=== PATIENT | female | born 1965 ===

== ENCOUNTER → 2020-10-07 14:22 | Outpatient (BNVA) | payer OTHER, SELFPAY | PROVIDERS: PCP Internal Medicine; Visit Provider Nurse Practitioner Family ==

== ENCOUNTER 2021-01-13 08:31 | Outpatient (REF) | payer OTHER, SELFPAY | END 2021-01-13 08:32 | disposition home or self-care (01) | LOC: HO.HOSX 08:31 | PROVIDERS: Visit Provider Orthopaedic Surgery | DX: Z13.89 Encounter for screening for other disorder (principal) ==

== ENCOUNTER 2021-01-14 05:35 | Outpatient (REF) | payer OTHER, SELFPAY ==
--- NOTE | ~2021-01-14 | XR_ITS ---
EXAMINATION: XR FOOT, RIGHT XR ANKLE, RIGHT CLINICAL INFORMATION: Pain in right foot and right ankle. COMPARISON: None TECHNIQUE: 3 views right ankle and 3 views right foot. FINDINGS: RIGHT FOOT: There is mild hallux valgus deformity 1st MTP joint. There is no visible acute fracture, dislocation or subluxation. No bony erosive changes seen. The soft tissues are normal. RIGHT ANKLE: The ankle mortise and subtalar joints are normal. There is a moderate-sized calcaneal heel and a small retrocalcaneal enthesophyte. There is dorsal intertarsal spurring, as well. Mild soft tissue swelling is seen along the dorsal intertarsal region where spurring is noted. No acute fracture or dislocation seen. There is moderate degenerative spurring at the 1st MTP joint on the lateral view. XR/XR foot RT 2V IMPRESSION: Moderate degenerative changes 1st MTP joint, dorsal intertarsal joints and moderate sized enthesophyte along the calcaneal heal and retrocalcaneal regions.
--- NOTE | ~2021-01-14 | XR_ITS ---
EXAMINATION: XR HAND, LEFT CLINICAL INFORMATION: Left hand pain. COMPARISON: None TECHNIQUE: PA, lateral, and oblique views of the left hand. FINDINGS: No acute fracture or dislocation. Normal carpal alignment. Tiny marginal osteophytes at the triscaphe and 1st carpometacarpal joints as well as scattered throughout the interphalangeal joints. No osseous erosion. No abnormal soft tissue calcification. XR/XR hand LT min 3V IMPRESSION: Minimal osteoarthritis at the triscaphe and 1st carpometacarpal joints as well as scattered throughout the interphalangeal joints.
--- NOTE | ~2021-01-14 | XR_ITS ---
EXAMINATION: XR FOOT, RIGHT XR ANKLE, RIGHT CLINICAL INFORMATION: Pain in right foot and right ankle. COMPARISON: None TECHNIQUE: 3 views right ankle and 3 views right foot. FINDINGS: RIGHT FOOT: There is mild hallux valgus deformity 1st MTP joint. There is no visible acute fracture, dislocation or subluxation. No bony erosive changes seen. The soft tissues are normal. RIGHT ANKLE: The ankle mortise and subtalar joints are normal. There is a moderate-sized calcaneal heel and a small retrocalcaneal enthesophyte. There is dorsal intertarsal spurring, as well. Mild soft tissue swelling is seen along the dorsal intertarsal region where spurring is noted. No acute fracture or dislocation seen. There is moderate degenerative spurring at the 1st MTP joint on the lateral view. XR/XR ankle RT 2V IMPRESSION: Moderate degenerative changes 1st MTP joint, dorsal intertarsal joints and moderate sized enthesophyte along the calcaneal heal and retrocalcaneal regions.
== END 2021-01-14 05:36 | disposition home or self-care (01) ==
LOC: HO.HOSX 05:35
PROVIDERS: PCP Internal Medicine; Referring Provider Internal Medicine; Visit Provider Physician Assistant
DX: M79.642 Pain in left hand (principal); M25.571 Pain in right ankle and joints of right foot; M79.671 Pain in right foot; M25.532 Pain in left wrist
CPT/HCPCS: 73130; 73600; 73620; 99212

== ENCOUNTER 2021-03-05 10:27 | Outpatient (REF) | payer OTHER, SELFPAY ==
[2021-03-05 11:01] LABS: MANUAL DIFF FLAG NO
[2021-03-05 11:11] LABS: Basophils Percent Auto 0.4 % (0-2); Eosinophils Absolute Auto 0.2 X10*3/uL (0.0-0.4); Eosinophils Percent Auto 1.8 % (0-4); Hematocrit 35.7 % (37-47); Hemoglobin 11.2 g/dl (12.0-16.0); Imm Gran Abs Auto 0.05 X10*3/uL (0.00-0.03); Imm Gran Pct Auto 0.5 % (0.0-0.4); Immature Retic Fraction 15.1 % (3.0-15.9); Lymphocytes Absolute Auto 3.5 X10*3/uL (1.2-4.9); Lymphocytes Percent Auto 37.1 % (20-40); Mean Corpuscular HGB Conc 31.4 g/dl (31.0-35.0); Mean Corpuscular Hemoglobin 29.9 pg (27.0-33.0); Mean Corpuscular Volume 95.2 fL (80-98); Mean Platelet Volume 9.4 fL (9.4-12.3); Monocytes Absolute Auto 0.8 X10*3/uL (0.1-1.2); Monocytes Percent Auto 8.8 % (2-11); Neutrophils Absolute Auto 4.8 X10*3/uL (2.0-8.3); Neutrophils Percent Auto 51.4 % (45-73); Platelet Count 301 X10*3/uL (160-400); Red Blood Count 3.75 X10*6/uL (4.20-5.50); Red Cell Distribution Width 13.1 % (11.0-16.0); Retic HGB Equivalent 34.3 pg (30.0-35.0); Reticulocyte Percent 2.2 % (0.5-1.8); Reticulocytes Absolute 0.081 X10*6/uL (0.026-0.095); White Blood Count 9.4 X10*3/uL (4.8-10.8)
[2021-03-05 11:29] LABS: Cholesterol 185 mg/dL; HDL Cholesterol 59 mg/dL; Iron 50 mcg/dL (30-160); LDL Cholesterol Calculated 115 mg/dl; Magnesium 2.1 mg/dL (1.6-2.6); Percent Iron Saturation 15 % (15-50); Total Iron Binding Capacity 334 mcg/dL (228-428); Triglycerides 59 mg/dL; Unsaturated Iron Binding 284 ug/dL
[2021-03-05 11:50] LABS: Ferritin 38 ng/mL (10-250)
[2021-03-05 12:04] LABS: Folate 11.9 ng/mL (> or = 4.0); Vitamin B12 384 pg/mL (200-900)
== END 2021-03-05 10:28 | disposition home or self-care (01) ==
LOC: HO.LAB 10:27
PROVIDERS: PCP Internal Medicine; Visit Provider Internal Medicine
DX: D64.9 Anemia, unspecified (principal); L25.9 Unspecified contact dermatitis, unspecified cause; E78.00 Pure hypercholesterolemia, unspecified
CPT/HCPCS: 36415; 80061; 82607; 82728; 82746; 83540; 83735; 85025; 85045

== ENCOUNTER 2021-11-30 11:21 | Outpatient (REF) | payer OTHER, SELFPAY ==
[2021-11-30 11:37] LABS: MANUAL DIFF FLAG NO
[2021-11-30 11:53] LABS: Basophils Percent Auto 0.8 % (0-2); Eosinophils Absolute Auto 0.2 X10*3/uL (0.0-0.4); Eosinophils Percent Auto 3.2 % (0-4); Hematocrit 36.8 % (37.0-47.0); Hemoglobin 11.8 g/dl (12.0-16.0); Imm Gran Abs Auto 0.01 X10*3/uL (0.00-0.03); Imm Gran Pct Auto 0.2 % (0.0-0.4); Immature Retic Fraction 10.6 % (3.0-15.9); Lymphocytes Absolute Auto 1.5 X10*3/uL (1.2-4.9); Lymphocytes Percent Auto 27.9 % (20-40); Mean Corpuscular HGB Conc 32.1 g/dl (31.0-35.0); Mean Corpuscular Hemoglobin 30.7 pg (27.0-33.0); Mean Corpuscular Volume 95.8 fL (80.0-98.0); Mean Platelet Volume 9.6 fL (9.4-12.3); Monocytes Absolute Auto 0.4 X10*3/uL (0.1-1.2); Monocytes Percent Auto 7.9 % (2-11); Neutrophils Absolute Auto 3.2 x10*3/uL (2.0-8.3); Platelet Count 277 X10*3/uL (160-400); Red Blood Count 3.84 X10*6/uL (4.20-5.50); Red Cell Distribution Width 12.8 % (11.0-16.0); Retic HGB Equivalent 34.3 pg (30.0-35.0); Reticulocyte Percent 1.7 % (0.5-1.8); Reticulocytes Absolute 0.064 X10*6/uL (0.026-0.095); White Blood Count 5.3 X10*3/uL (4.8-10.8)
[2021-11-30 12:27] LABS: Alanine Aminotransferase 31 U/L (0-31); Albumin Level 4.2 g/dL (3.5-5.0); Alkaline Phosphatase 84 U/L (39-117); Anion Gap 13 (12-20); Aspartate Amino Transferase 21 U/L (5-31); Bilirubin Total 0.6 mg/dL (0.0-1.0); Blood Urea Nitrogen 10 mg/dL (9-16); Calcium 9.4 mg/dL (8.4-10.2); Carbon Dioxide 25 mmol/L (22-29); Chloride 107 mmol/L (96-108); Cholesterol 198 mg/dL; Estimated Glomerular Filt Rate > 60; Glucose Random 106 mg/dL (60-115); HDL Cholesterol 46 mg/dL; Iron 80 mcg/dL (30-160); LDL Cholesterol Calculated 135 mg/dl; Percent Iron Saturation 23 % (15-50); Sodium 141 mmol/L (135-145); Total Iron Binding Capacity 351 mcg/dL (228-428); Total Protein 7.2 g/dL (6.5-8.0); Triglycerides 88 mg/dL; Unsaturated Iron Binding 271 ug/dL
[2021-11-30 12:29] LABS: Appearance Urine CLEAR; Color Urine YELLOW; Glucose Urine UA NEG (NEG); Leukocyte Esterase Urine NEG (NEG); Nitrite Urine NEG (NEG); PH 7.5 (5.0-8.0); Specific Gravity - Urine 1.015 (1.005-1.025); Urine Blood NEG (NEG); Urine Ketones NEG (NEG); Urine Protein NEG (NEG-TRACE)
[2021-11-30 12:35] LABS: Estimated Average Glucose 100 mg/dL; Hemoglobin A1c % 5.1 %
[2021-11-30 12:36] LABS: Ferritin 72 ng/mL (10-250); Free T4 (Free Thyroxine) 0.96 ng/dL (0.71-1.85); Thyroid Stimulating Hormone 1.58 uIU/mL (0.32-4.0); Vitamin D 25-OH Total 12.9 ng/mL (>30)
[2021-11-30 12:39] LABS: Squamous Epithelial Cell Urine 2+ /LPF
[2021-11-30 12:43] LABS: Bacteria Urine 1+ /LPF; RBC Urine 0-2 /HPF (0); WBC Urine 0-2 /HPF (0-4)
[2021-11-30 12:44] LABS: Mucus Urine 1+ /LPF
[2021-11-30 13:07] LABS: Folate 17.5 ng/mL (> or = 4.0); Vitamin B12 376 pg/mL (200-900)
== END 2021-11-30 11:22 | disposition home or self-care (01) ==
LOC: HO.LAB 11:21
PROVIDERS: PCP Internal Medicine; Visit Provider Internal Medicine
DX: R73.02 Impaired glucose tolerance (oral) (principal); E78.00 Pure hypercholesterolemia, unspecified
CPT/HCPCS: 36415; 80053; 80061; 81001; 82306; 82607; 82728; 82746; 83036; 83540; 84439; 84443; 85025; 85045

== ENCOUNTER 2023-06-15 11:07 | Outpatient (AMB) | payer OTHER, SELFPAY ==
--- NOTE | 2023-06-15 11:09 | MHC.PC.OV ---
Vital Signs 06/15/23 11:11 Height 5 ft 5 in Weight 222 lb 2 oz BMI 37.0 BP 132/82 Blood Pressure Location Rt brachial Position Sitting Pulse 89 Pulse Source Pulse Oximeter Pulse Oximetry (%) 96 Oxygen Delivery Method Room Air Intake Visit Reasons: Skin rash Intake Note: Patient is here today for rash on under both breast. Tried home remedy and it got worse. Direct Marketing Analyst Required: No Machine Plug Shaper: Not Required per policy Accompanied by: Self / Same As Patient Allergies semaglutide [From Ozempic] Allergy (Intermediate, Verified 06/15/23 11:23) Dizziness latex Allergy (Unknown, Verified 06/15/23 11:23) Hives Tobacco use date assessed: 06/15/23 Dental Screening Dental Screen Date: 06/15/23 Did you have a dental visit in the last 12 months?: No Did you have a dental problem in the last 6 months where you did not have access to dental care?: No Was dental information given to patient?: Patient has dentist HPI HPI Comments History of Present Illness Details 58-year-old female past medical history significant for asthma, anxiety, insomnia, GERD, hypercholesteremia, migraines, anemia, impaired glucose tolerance vitamin-D deficiency, PVD. Patient presents today for same-day visit for rash in the middle of her breasts itching scratching, and developed a splattered rash under breasts. Patient reports she tried [id number] home remedies to help with the rash and itching such as peppermint, basal, tried [id number] hydrocortisone cream. Patient states noted small bump to right breast and she started trying to pop it. States she got patient pus out of it. Continues to have itching states has been taking her fexofenadine for this with improvement. On examination pain patient noted to have multiple skin abscesses abscess to right lower breast open with green drianage. Patient denies any fevers, chills. [facility] Medical History (Updated 06/15/23 @ 11:38 by JANUARY Villar) Vitamin D deficiency Neuropathy of right peroneal nerve Migraine Hypercholesterolemia Obesity (BMI 30-39.9) Osteoarthritis Right renal stone Fatty liver GERD (gastroesophageal reflux disease) Insomnia Anxiety Asthma Surgical History H/O colonoscopy H/O lithotripsy Right ankle injury S/P trigger finger release S/P trigger finger release Family History Father Myocardial infarct Mother Skin cancer Maternal Aunt Pancreatic cancer Diabetes mellitus Maternal Uncle Prostate cancer Paternal Aunt CAD (coronary artery disease) Myocardial infarct Paternal Uncle Myocardial infarct Brother Substance abuse Social History Household Members: Spouse, Family and Children Housing: House Alcohol intake: current Alcohol intake frequency: holidays/special occasions only Patient Tobacco Use Status: Never used Tobacco e-Cigarette/Vaping Use: Never Used Second Hand Smoke Exposure: No service: No Current occupational status: employed 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 1. Little interest or pleasure in doing things: not at all 2. Feeling down, depressed, or hopeless: not at all 3. Trouble falling or staying asleep, or sleeping too much: not at all 4. Feeling tired or having little energy: not at all 5. Poor appetite or overeating: not at all 6. Feeling bad about yourself - or that you are a failure or have let yourself or your family down: not at all 7. Trouble concentrating on things, such as reading the newspaper or watching television: not at all 8. Moving or speaking so slowly that other people could have noticed. Or the opposite - being so fidgety or restless that you have been moving around a lot more than usual: not at all 9. Thoughts that you would be better off or of hurting yourself in some way: not at all Total score: 0 Depression Screening Interpretation: Negative Depression Screening Done: Yes Source: Developed by Drs. Adonis Pat, Roopa Espinal, Tushar Angel and colleagues, with an educational vladimir from [employer]. Thrive Questionnaire Date Thrive assessed: 06/15/23 I am a: Patient What is your living situation today?: I have a steady place to live Within the past 12 months, did the food you bought not last and you didn't have the money to get more?: Never true Within the past 12 months, did you worry whether your food would run out before you got money to buy more?: Never true Do you have trouble paying for medicines?: No Do you have trouble getting transportation to medical appointments?: No Do you have trouble paying your heating and electricity bill?: No Do you have trouble taking care of your child, family member or friend?: No Do you have trouble with day-to-day activities such as bathing, preparing meals, shopping, managing finances, etc.?: No Are you currently unemployed and looking for a job?: No Are you interested in more education?: No Currently or been in a relationship where the following occur: no concerns reported AUDIT C Alcohol Use Questionnaire (AUDIT-C) 1. How often do you have a drink containing alcohol?: Monthly or less 2. How many drinks containing alcohol do you have on a typical day when you are drinking?: 1 or 2 Total Score: 1 RHONDA-7 AMB Questionnaire RHONDA-7 Date RHONDA - 7 assessed: 06/15/23 Feeling nervous, anxious, or on edge: 0 = Not at all Not being able to stop or control worryin = Not at all Worrying too much about different things: 0 = Not at all Trouble relaxin = Not at all Being so restless that it is hard to sit still: 0 = Not at all Becoming easily annoyed or irritable: 0 = Not at all Feeling afraid as if something awful might happen: 0 = Not at all Total RHONDA-7 score (0-4 normal; 5-9 mild; 10-14 moderate; 15-21 severe): 0 Source: Developed by Drs. Adonis Pat, Roopa Espinal, Tushar Angel and colleagues, with an educational vladimir from [employer]. Review of Systems Const Denies chills, Denies fatigue, Denies fever(s) and Denies poor appetite Eyes Denies no additional complaints ENT Reports Normal hearing present Card Denies chest pain, Denies syncope, Denies rapid heart rate and Denies dyspnea Resp Denies cough and Denies dyspnea GI Denies change in stool character, Denies constipation, Denies diarrhea, Denies nausea and Denies vomiting Denies urinary frequency, Denies dysuria and Denies urinary urgency Skin/Breast Details: breast rash Neuro Reports Normal hearing present, Denies confusion and Denies syncope Psych Denies confusion Endo Denies fatigue Physical exam (Primary Care) Vital Signs: Last Vital Signs Pulse 89 06/15/23 11:11 BP 132/82 06/15/23 11:11 Pulse Ox 96 06/15/23 11:11 Oxygen Delivery Method Room Air 06/15/23 11:11 BMI result Body Mass Index 37.0 Tobacco/Smoking Status: Tobacco use Status Tobacco use date assessed 06/15/23 06/15/23 11:23 Patient Tobacco Use Status Never used Tobacco 06/15/23 11:23 e-Cigarette/Vaping Use Never Used 06/15/23 11:23 PHQ-9: PHQ-9 Score PHQ-9: Total score 0 06/15/23 11:23 Depression Screening Interpretation: Negative Thrive Assessment: Date of Thrive Assessment Date Thrive assessed 06/15/23 06/15/23 11:23 Currently or been in a relationship where the following occur: no concerns reported Const General: No confusion Orientation/consciousness: No confusion HENMT Head: Yes normocephalic and Yes atraumatic Eyes Conjunctivae: conjunctivae normal Chest Chest palpation & inspection: normal inspection of the chest Resp Effort & Inspection: normal respiratory effort Auscultation: clear to auscultation bilaterally, no crackles, no rhonchi and no wheezes Cardio Rate: regular rate Rhythm: regular rhythm Heart sounds: S1 normal heart sound present and S2 normal heart sound present GI Inspection: Yes normal to inspection Skin Full body images: 1. 0.25x 0.25, open abcess with green purulent drainage note and mild surrounding erythema 2. multiple small closed superficial abcesses with white heads on them noted to abdomen. 3. multiple small closed superficial abcesses with white heads on them noted to abdomen. 4. multiple small closed superficial abcesses with white heads on them noted to abdomen. 5. multiple small closed superficial abcesses with white heads on them noted to abdomen. Neuro General: No confusion Cranial nerves: Yes Normal hearing present Extrem General: No edema Assessment and Plan Assessment & Plan (1) Skin abscess: Code(s): L02.91 - Cutaneous abscess, unspecified Plan: Patient advised to keep abscesses clean, dry and open to air. Patient advised not to use any home remedies or put any lotions, creams on them. Patient advised not to scratch or pick at abscesses. Can continue to take her fexofenadine as needed for itching. Will send Bactrim b.i.d. for abscesses. Signs and symptoms reviewed with patient when to follow-up with PCP or seek emergency medical attention Plan Keep scheduled follow-up with PCP or follow-up sooner needed. Orders: Orders Complete Blood Count Auto Diff Today Z13.0 - Encounter for screening for diseases of the blood and blood-forming organs and certain disorders involving the immune mechanism Comprehensive Met. Panel Today L02.91 - Cutaneous abscess, unspecified Medications: New sulfamethoxazole-trimethoprim 800-160 mg (Bactrim DS) 1 tab PO BID 20 tabs 0RF L02.91 - Cutaneous abscess, unspecified Refilled fexofenadine 180 mg PO DAILY PRN 90 tabs 1RF Allergy Symptoms Coding Level of Care Code Est Pt Level 3 (90046) Diagnoses Skin abscess L02.91
[2023-06-15 11:11] VITALS: BP 132/82; PULSE 89; O2SAT 96; BMI 37.0
== END 2023-06-15 11:48 | disposition home or self-care (01) ==
PROVIDERS: PCP Internal Medicine; Visit Provider Nurse Practitioner Family
DX: L02.91 Cutaneous abscess, unspecified (principal)
CPT/HCPCS: 99213

== ENCOUNTER 2023-06-15 11:52 | Outpatient (REF) | payer OTHER, SELFPAY ==
[2023-06-15 12:26] LABS: MANUAL DIFF FLAG NO
[2023-06-15 12:49] LABS: Basophils Absolute Auto 0.1 X10*3/uL (0.0-0.2); Basophils Percent Auto 0.5 % (0-2); Eosinophils Absolute Auto 0.2 X10*3/uL (0.0-0.4); Eosinophils Percent Auto 1.6 % (0-4); Hematocrit 37.8 % (37.0-47.0); Hemoglobin 11.9 g/dl (12.0-16.0); Imm Gran Abs Auto 0.04 X10*3/uL (0.00-0.03); Imm Gran Pct Auto 0.4 % (0.0-0.4); Lymphocytes Absolute Auto 2.2 X10*3/uL (1.2-4.9); Lymphocytes Percent Auto 19.6 % (20-40); Mean Corpuscular HGB Conc 31.5 g/dl (31.0-35.0); Mean Corpuscular Hemoglobin 30.2 pg (27.0-33.0); Mean Corpuscular Volume 95.9 fL (80.0-98.0); Mean Platelet Volume 9.6 fL (9.4-12.3); Monocytes Absolute Auto 0.9 X10*3/uL (0.1-1.2); Monocytes Percent Auto 8.6 % (2-11); Neutrophils Absolute Auto 7.6 x10*3/uL (2.0-8.3); Neutrophils Percent Auto 69.3 % (45-73); Platelet Count 281 X10*3/uL (160-400); Red Blood Count 3.94 X10*6/uL (4.20-5.50); Red Cell Distribution Width 12.4 % (11.0-16.0)
[2023-06-15 13:16] LABS: Alanine Aminotransferase 14 U/L (0-31); Albumin Level 4.3 g/dL (3.5-5.0); Alkaline Phosphatase 112 U/L (39-117); Anion Gap 11 (12-20); Aspartate Amino Transferase 14 U/L (5-31); Bilirubin Total 0.5 mg/dL (0.0-1.0); Blood Urea Nitrogen 11 mg/dL (9-16); Calcium 9.4 mg/dL (8.4-10.2); Carbon Dioxide 27 mmol/L (22-29); Chloride 106 mmol/L (96-108); Estimated Glomerular Filt Rate > 60; Glucose Random 113 mg/dL (60-115); Potassium 3.8 mmol/L (3.3-5.1); Sodium 140 mmol/L (135-145); Total Protein 7.5 g/dL (6.5-8.0)
== END 2023-06-15 11:53 | disposition home or self-care (01) ==
LOC: HO.LAB 11:52
PROVIDERS: PCP Internal Medicine; Visit Provider Nurse Practitioner Family
DX: Z13.0 Encounter for screening for diseases of the blood and blood-forming organs and certain disorders involving the immune mechanism (principal); L02.91 Cutaneous abscess, unspecified
CPT/HCPCS: 36415; 80053; 85025

== ENCOUNTER 2023-06-22 06:30 | Outpatient (REF) | payer OTHER, SELFPAY | END 2023-06-22 06:31 | disposition home or self-care (01) | LOC: HO.HOSX 06:30 | PROVIDERS: Visit Provider Physician Assistant | DX: Z13.89 Encounter for screening for other disorder (principal) ==

== ENCOUNTER 2023-07-12 13:26 | Outpatient (AMB) | payer OTHER, SELFPAY ==
--- NOTE | 2023-07-12 13:34 | A.OFFVIS_ITS ---
Intake Vital Signs 07/12/23 13:43 Height 5 ft 5 in Weight 222 lb BMI 36.9 Intake Visit Reasons: NewProb-Left hand index finger bump Intake Note: Drea a 58 year old right hand dominant female presents today for an evaluation of mass on left hand index finger. Patient reports noticing lump around the fall time of 2022. States pain comes with applying pressure to bump. She has tried applying vicks and a band aid with no relief. Allergies semaglutide [From Ozempic] Allergy (Intermediate, Verified 07/12/23 13:40) Dizziness latex Allergy (Unknown, Verified 07/12/23 13:40) Hives HPI NewProb-Left hand index finger bump HPI Details 58-year-old right hand dominant female hailey meza presents to the office today for evaluation of left index finger. She states she has a mass on her left index finger since the fall time of 2022. She reports she experiences pain with applying pressure as well as difficulty when typing. She denies any redness or drainage. She finds no relief with Vicks and band aid. She has tried marijuana tincture on her right hand which provided her relief. She has a history of bilateral trigger thumb surgery with Dr. Vela. [facility], [facility] Medical History (Updated 07/12/23 @ 13:54 by Lisbet Murray PA-C) Vitamin D deficiency Neuropathy of right peroneal nerve Migraine Hypercholesterolemia Obesity (BMI 30-39.9) Osteoarthritis Right renal stone Fatty liver GERD (gastroesophageal reflux disease) Insomnia Anxiety Asthma Surgical History H/O colonoscopy H/O lithotripsy Right ankle injury S/P trigger finger release S/P trigger finger release Family History Father Myocardial infarct Mother Skin cancer Maternal Aunt Pancreatic cancer Diabetes mellitus Maternal Uncle Prostate cancer Paternal Aunt CAD (coronary artery disease) Myocardial infarct Paternal Uncle Myocardial infarct Brother Substance abuse Social History Household Members: Spouse, Family and Children Housing: House Alcohol intake: current Alcohol intake frequency: holidays/special occasions only Patient Tobacco Use Status: Never used Tobacco e-Cigarette/Vaping Use: Never Used Second Hand Smoke Exposure: No service: No Current occupational status: employed 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 Full ROM of finger. NVI. Results Reviewed Results Reviewed: Xrays were obtained in the office today and personally reviewed by me of the left hand show soft tissue gale along the dip joint of the idex finger Assessment & Plan Assessment & Plan (1) Mucoid cyst of joint: Code(s): M67.40 - Ganglion, unspecified site Plan We discussed options today which include surgical excision of the cyst. I explain the risk, benefits and alternatives, risks including but not limited to infection, stiffness and recurrence. At this time she would like to hold off on the surgery and if symptoms persist or worsens, patient will contact the office, otherwise follow-up as needed. Orders: Orders XR hand LT min 3V Today M79.642 - Pain in left hand Patient Instructions: Scribed for Lisbet Murray PA-C, by Paul Valadez medical receptionist assistant, on 07/12/2023 at 1:15 PM EST. Lisbet Gaytan PA-C, have personally reviewed and agree with the information entered by the scribe. Coding Level of Care Code Est Pt Level 3 (47754) Diagnoses Mucoid cyst of joint M67.40
[2023-07-12 13:43] VITALS: BMI 36.9
== END 2023-07-12 14:16 | disposition home or self-care (01) ==
PROVIDERS: PCP Internal Medicine; Visit Provider Physician Assistant
DX: M67.442 Ganglion, left hand (principal)
CPT/HCPCS: 99213

== ENCOUNTER 2023-07-12 15:26 | Outpatient (REF) | payer OTHER, SELFPAY ==
--- NOTE | ~2023-07-12 | XR_ITS ---
EXAMINATION: XR HAND, LEFT CLINICAL INFORMATION: Left hand pain. COMPARISON: Left hand 01/14/2021 TECHNIQUE: PA, lateral, and oblique views of the left hand. FINDINGS: Again seen are degenerative changes at the triscaphe joint. Degenerative change is seen at the DIP joint of the index finger slightly increased from prior. There is focal medial soft tissue swelling seen measuring about 1.2 cm next to the DIP joint. No fractures or bony destructive lesions. XR/XR hand LT min 3V IMPRESSION: Degenerative changes at the triscaphe joint and DIP joint of the index finger. Soft tissue bulge adjacent to the DIP joint of the index finger as described above.
== END 2023-07-12 15:27 | disposition home or self-care (01) ==
LOC: HO.HOSX 15:26
PROVIDERS: Visit Provider Physician Assistant
DX: M79.642 Pain in left hand (principal); M67.40 Ganglion, unspecified site
CPT/HCPCS: 73130; 99212

== ENCOUNTER 2023-11-21 16:23 | Outpatient (AMB) | payer OTHER, SELFPAY ==
[2023-11-21 16:24] VITALS: BP 130/84; PULSE 72; O2SAT 98; BMI 37.8
--- NOTE | 2023-11-21 16:24 | MHC.PC.OV ---
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: No Field Hand: Not Required per policy Accompanied by: Self / Same As Patient Allergies semaglutide [From Ozempic] Allergy (Intermediate, Verified 11/21/23 16:24) Dizziness latex Allergy (Unknown, Verified 11/21/23 16:24) Hives Medication List - Last Reconciled 11/21/23 by Jose Laura MD albuterol sulfate 2.5 mg (3 mL) inhalation QID PRN albuterol sulfate 90 mcg/actuation 2 puffs inhalation Q6H PRN amoxicillin-pot clavulanate 500-125 mg (Augmentin) 1 tab PO BID B complex with F-nyutlknma-Wi caps PO .QD cholecalciferol (vitamin D3) (Vitamin D3) 25 mcg PO DAILY clotrimazole 1% 1 appl topical BID 4 weeks fexofenadine 180 mg PO DAILY PRN mecobalamin (vitamin B12) 1,000 mcg PO DAILY miconazole nitrate 2% (Zeasorb AF) 1 appl topical DAILY Tobacco use date assessed: 11/21/23 Dental Screening Dental Screen Date: 11/21/23 Did you have a dental visit in the last 12 months?: No Did you have a dental problem in the last 6 months where you did not have access to dental care?: No Was dental information given to patient?: Patient has dentist HPI Cellulitis HPI Details 58-year-old female with review of the notes had seen the Orthopedics for the mass on the left hand index finger diagnosis of ganglion cyst. had a left hand x-ray showing degenerative changes. 06/2023 rash on chest- ? pus, took apple cider vinegar which resolved. last week gardening- 2 days lateral nose hurting, also had rash under breast - palced calamine lotion [facility] Medical History (Updated 11/21/23 @ 16:42 by Jose Laura MD) Vitamin D deficiency Neuropathy of right peroneal nerve Migraine Hypercholesterolemia Obesity (BMI 30-39.9) Osteoarthritis Right renal stone Fatty liver GERD (gastroesophageal reflux disease) Insomnia Anxiety Asthma Surgical History H/O colonoscopy H/O lithotripsy Right ankle injury S/P trigger finger release S/P trigger finger release Family History Father Myocardial infarct Mother Skin cancer Maternal Aunt Pancreatic cancer Diabetes mellitus Maternal Uncle Prostate cancer Paternal Aunt CAD (coronary artery disease) Myocardial infarct Paternal Uncle Myocardial infarct Brother Substance abuse Social History Household Members: Spouse, Family and Children Housing: House Alcohol intake: current Alcohol intake frequency: holidays/special occasions only Patient Tobacco Use Status: Never used Tobacco e-Cigarette/Vaping Use: Never Used Second Hand Smoke Exposure: No service: No Current occupational status: employed 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 1. Little interest or pleasure in doing things: not at all 2. Feeling down, depressed, or hopeless: not at all 3. Trouble falling or staying asleep, or sleeping too much: not at all 4. Feeling tired or having little energy: not at all 5. Poor appetite or overeating: not at all 6. Feeling bad about yourself - or that you are a failure or have let yourself or your family down: not at all 7. Trouble concentrating on things, such as reading the newspaper or watching television: not at all 8. Moving or speaking so slowly that other people could have noticed. Or the opposite - being so fidgety or restless that you have been moving around a lot more than usual: not at all 9. Thoughts that you would be better off or of hurting yourself in some way: not at all Total score: 0 Depression Screening Interpretation: Negative Depression Screening Done: Yes Source: Developed by Drs. Adonis Pat, Roopa Espinal, Tushar Angel and colleagues, with an educational vladimir from [employer]. Thrive Questionnaire Date Thrive assessed: 11/21/23 I am a: Patient What is your living situation today?: I have a steady place to live Within the past 12 months, did the food you bought not last and you didn't have the money to get more?: Never true Within the past 12 months, did you worry whether your food would run out before you got money to buy more?: Never true Do you have trouble paying for medicines?: No Do you have trouble getting transportation to medical appointments?: No Do you have trouble paying your heating and electricity bill?: No Do you have trouble taking care of your child, family member or friend?: No Do you have trouble with day-to-day activities such as bathing, preparing meals, shopping, managing finances, etc.?: No Are you currently unemployed and looking for a job?: No Are you interested in more education?: No Please select the resources that you would like help with: None THRIVE Score: 0 AUDIT C Alcohol Use Questionnaire (AUDIT-C) 1. How often do you have a drink containing alcohol?: Monthly or less 2. How many drinks containing alcohol do you have on a typical day when you are drinking?: 1 or 2 Total Score: 1 RHONDA-7 AMB Questionnaire RHONDA-7 Date RHONDA - 7 assessed: 11/21/23 Feeling nervous, anxious, or on edge: 0 = Not at all Not being able to stop or control worryin = Not at all Worrying too much about different things: 0 = Not at all Trouble relaxin = Not at all Being so restless that it is hard to sit still: 0 = Not at all Becoming easily annoyed or irritable: 0 = Not at all Feeling afraid as if something awful might happen: 0 = Not at all Total RHONDA-7 score (0-4 normal; 5-9 mild; 10-14 moderate; 15-21 severe): 0 Source: Developed by Drs. Adonis Pat, Roopa Espinal, Tushar Angel and colleagues, with an educational vladimir from [employer]. Physical exam (Primary Care) Vital Signs: Last Vital Signs Pulse 72 11/21/23 16:24 BP 130/84 11/21/23 16:24 Pulse Ox 98 11/21/23 16:24 Oxygen Delivery Method Room Air 11/21/23 16:24 BMI result Body Mass Index 37.8 Tobacco/Smoking Status: Tobacco use Status Tobacco use date assessed 11/21/23 11/21/23 16:25 Patient Tobacco Use Status Never used Tobacco 11/21/23 16:25 e-Cigarette/Vaping Use Never Used 11/21/23 16:25 PHQ-9: PHQ-9 Score PHQ-9: Total score 0 11/21/23 16:25 Depression Screening Interpretation: Negative Thrive Assessment: Date of Thrive Assessment Date Thrive assessed 11/21/23 11/21/23 16:25 Const General: alert; No acute distress [facility] Face images: 1. Mild swelling and redness on the anterior side of the nose with some tenderness Eyes Conjunctivae: conjunctivae normal Chest Chest/axillae images: 1. Erythematous rash on the underside of the breast bilateral no scaliness noted Resp Auscultation: clear to auscultation bilaterally Cardio Rate: regular rate Rhythm: regular rhythm GI Inspection: Yes normal to inspection Extrem General: Yes normal to inspection and No edema Assessment and Plan Assessment & Plan (1) Mucoid cyst of joint: Code(s): M67.40 - Ganglion, unspecified site Plan: Conservative treatment considered. (2) Tinea corporis: Code(s): B35.4 - Tinea corporis Plan: Discussed about keeping the area dry. Anti fungal cream sent in and was prescribed Zeasorb (3) Nose pain: Code(s): J34.89 - Other specified disorders of nose and nasal sinuses Plan: Oral Antibiotic prescribed for swelling on the nasal passages Medications: New clotrimazole 1% 1 appl topical BID 4 weeks 45 grams 1RF B35.4 - Tinea corporis amoxicillin-pot clavulanate 500-125 mg (Augmentin) 1 tab PO BID 14 tabs 0RF J34.89 - Other specified disorders of nose and nasal sinuses miconazole nitrate 2% (Zeasorb AF) 1 appl topical DAILY 85 grams 1RF B35.4 - Tinea corporis Coding Level of Care Code Est Pt Level 4 (24360) Diagnoses Mucoid cyst of joint M67.40 Tinea corporis B35.4 Nose pain J34.89
== END 2023-11-21 16:48 | disposition home or self-care (01) ==
LOC: HO.HMGH 16:23
PROVIDERS: PCP Internal Medicine; Visit Provider Internal Medicine
DX: M67.40 Ganglion, unspecified site (principal); B35.4 Tinea corporis; J34.89 Other specified disorders of nose and nasal sinuses
CPT/HCPCS: 99214

== ENCOUNTER 2024-04-12 11:43 | Outpatient (AMB) | payer OTHER, SELFPAY ==
[2024-04-12 11:47] VITALS: BP 100/64; PULSE 82; O2SAT 96; BMI 37.8
--- NOTE | 2024-04-12 11:47 | MHC.PC.OV ---
Vital Signs 04/12/24 11:47 Height 5 ft 5 in Weight 227 lb 6 oz BMI 37.8 BP 100/64 Blood Pressure Location Lt brachial Position Sitting Pulse 82 Pulse Source Pulse Oximeter Pulse Oximetry (%) 96 Oxygen Delivery Method Room Air Intake Visit Reasons: Physical Intake Note: Patient is here today for a physical. Pt decline flu shot day. 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 Accompanied by: Self / Same As Patient Allergies semaglutide [From Ozempic] Allergy (Intermediate, Verified 04/12/24 11:47) Dizziness latex Allergy (Unknown, Verified 04/12/24 11:47) Hives Medication List - Last Reconciled 04/12/24 by Jose Laura, albuterol sulfate 2.5 mg (3 mL) inhalation QID PRN albuterol sulfate 90 mcg/actuation 2 puffs inhalation Q6H PRN antiarthritic combination no.2 (glucosamine-chondroitin) mg PO B complex with E-gpnhjmhlx-Nf caps PO .QD cholecalciferol (vitamin D3) (Vitamin D3) 25 mcg PO DAILY clotrimazole 1% 1 appl topical BID 4 weeks fexofenadine 180 mg PO DAILY PRN mecobalamin (vitamin B12) 1,000 mcg PO DAILY miconazole nitrate 2% (Zeasorb AF) 1 appl topical DAILY mupirocin 2% 1 appl topical TID turmeric mg PO Tobacco use date assessed: 04/12/24 Dental Screening Dental Screen Date: 11/21/23 HPI Physical HPI Details 59-year-old obese female with a history of asthma generalized anxiety disorder GERD hypercholesterolemia migraine impaired glucose tolerance coming in for physical exam last seen in November 2023. Patient is due for mammogram and colonoscopy. Patient was noted to have an ER visit for swelling and itching of the right hand took amoxicillin but this increase the severity of pruritus. Diagnosis of contact dermatitis and was given prednisone. November 26 ER visit also for rash on the right hand and fingers patient was given hydrocortisone cream and prednisone. Spring and summer use of asthma med. dizzy 10/2023 no fever, mild nausea, no dysphagia PFSH Medical History Vitamin D deficiency Neuropathy of right peroneal nerve Migraine Hypercholesterolemia Obesity (BMI 30-39.9) Osteoarthritis Right renal stone Fatty liver GERD (gastroesophageal reflux disease) Insomnia Anxiety Asthma Surgical History H/O colonoscopy H/O lithotripsy Right ankle injury S/P trigger finger release S/P trigger finger release Family History Father Myocardial infarct Mother Skin cancer Maternal Aunt Pancreatic cancer Diabetes mellitus Maternal Uncle Prostate cancer Paternal Aunt CAD (coronary artery disease) Myocardial infarct Paternal Uncle Myocardial infarct Brother Substance abuse Social History (Updated 04/12/24 @ 12:02 by Jose Laura MD) Household Members: Spouse, Family and Children Housing: House Alcohol intake: current Alcohol intake frequency: holidays/special occasions only Comment: last alcohol 06/2021 Patient Tobacco Use Status: Never used Tobacco e-Cigarette/Vaping Use: Never Used Second Hand Smoke Exposure: No service: No Current occupational status: employed 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 Cognitive needs: No Hearing needs: No Vision needs: No Questionnaire Thrive Questionnaire Date Thrive assessed: 11/21/23 I am a: Patient What is your living situation today?: I have a steady place to live Within the past 12 months, did the food you bought not last and you didn't have the money to get more?: I choose not to answer this question Within the past 12 months, did you worry whether your food would run out before you got money to buy more?: I choose not to answer this question Do you have trouble paying for medicines?: I choose not to answer this question Do you have trouble getting transportation to medical appointments?: I choose not to answer this question Do you have trouble paying your heating and electricity bill?: I choose not to answer this question Do you have trouble taking care of your child, family member or friend?: I choose not to answer this question Do you have trouble with day-to-day activities such as bathing, preparing meals, shopping, managing finances, etc.?: No Are you currently unemployed and looking for a job?: No Are you interested in more education?: No Please select the resources that you would like help with: None Currently or been in a relationship where the following occur: No concerns reported THRIVE Score: 0 AUDIT C Alcohol Use Questionnaire (AUDIT-C) 1. How often do you have a drink containing alcohol?: Never Total Score: 0 RHONDA-7 AMB Questionnaire RHONDA-7 Date RHONDA - 7 assessed: 11/21/23 Feeling nervous, anxious, or on edge: 0 = Not at all Not being able to stop or control worryin = Not at all Worrying too much about different things: 0 = Not at all Trouble relaxin = Not at all Being so restless that it is hard to sit still: 0 = Not at all Becoming easily annoyed or irritable: 0 = Not at all Feeling afraid as if something awful might happen: 0 = Not at all Total RHONDA-7 score (0-4 normal; 5-9 mild; 10-14 moderate; 15-21 severe): 0 Source: Developed by Drs. Adonis Pat, Roopa Espinal, Tushar Angel and colleagues, with an educational vladimir from [employer]. Review of Systems Const Denies poor appetite and Denies weakness Eyes Denies no additional complaints ENT Reports Normal hearing present, Denies dizziness, Denies nasal congestion, Denies tinnitus and Denies sore throat Card Denies chest pain, Denies syncope, Denies rapid heart rate and Denies dyspnea Resp Denies cough and Denies dyspnea GI Denies change in stool character, Reports constipation, Denies diarrhea, Denies nausea and Denies vomiting Denies urinary frequency, Denies difficulty voiding and Denies dysuria Neuro Reports Normal hearing present, Denies confusion, Denies dizziness, Denies syncope and Denies weakness Psych Denies confusion Physical exam (Primary Care) BMI result Body Mass Index 37.8 Tobacco/Smoking Status: Tobacco use Status Tobacco use date assessed 11/21/23 11/21/23 16:25 Patient Tobacco Use Status Never used Tobacco 11/21/23 16:25 e-Cigarette/Vaping Use Never Used 11/21/23 16:25 Thrive Assessment: Date of Thrive Assessment Date Thrive assessed 04/05/24 04/05/24 15:36 Currently or been in a relationship where the following occur: No concerns reported Const General: No confusion Orientation/consciousness: No confusion HENMT Head: Yes normocephalic Ears: external ears normal and TM's normal bilaterally Face and sinus: Yes normal facial exam Mouth: moist mucous membranes Throat: Yes tonsils normal Eyes Conjunctivae: conjunctivae normal Pupils: Equal, round and reactive pupils present and Pupil accommodation reflex normal Direct Ophthalmoscopy: normal light reflex Neck Neck: No lymphadenopathy Thyroid: Thyroid normal Chest Chest palpation & inspection: normal inspection of the chest Resp Effort & Inspection: normal respiratory effort and no audible wheezes Auscultation: clear to auscultation bilaterally, no crackles, no wheezes and lung sounds not diminished Cardio Rate: regular rate Rhythm: regular rhythm Peripheral pulses: radial pulses present and dorsalis pedis present GI Other: declined Palpation (GI): no masses Auscultation: normal bowel sounds and normoactive bowel sounds Rectal Exam - Female: deferred Skin General skin exam: no rashes or lesions noted Rashes: no rashes Neuro General: No confusion Cranial nerves: Yes Equal, round and reactive pupils present and Yes Normal hearing present Cognition (Neuro): normal cognition Gait exam (Neuro): Normal gait present Motor exam (neuro): 5/5 motor strength present throughout Deep tendon reflexes (DTR's): Right brachioradialis reflex intensity grade: 2+, Left brachioradialis reflex intensity grade: 2+, Right patellar reflex intensity grade: 2+ and Left patellar reflex intensity grade: 2+ Extrem General: No edema Coding Level of Care Code Est Pt Prev Care 40-64y(30587) Diagnoses Annual physical exam Z00.00 Allergic contact dermatitis, unspecified trigger L23.9 Contact dermatitis trigger: unspecified trigger Hypercholesterolemia E78.00 Gastroesophageal reflux disease without esophagitis K21.9 Esophagitis presence: without esophagitis Mild intermittent asthma without complication J45.20 Asthma severity: mild Asthma persistence: intermittent Asthma complication type: uncomplicated Primary insomnia F51.01 Insomnia type: primary Impaired glucose tolerance R73.02 Generalized anxiety disorder F41.1 Dysuria R30.0 Assessment & Plan Assessment & Plan (1) Annual physical exam: Code(s): Z00.00 - Encounter for general adult medical examination without abnormal findings Category: Medical Plan: Patient is advised to eat healthy, keep well hydrated, keep active and have adequate sleep. (2) Allergic contact dermatitis: Code(s): L23.9 - Allergic contact dermatitis, unspecified cause Category: Medical Qualifiers: Contact dermatitis trigger: unspecified trigger Qualified Code(s): L23.9 - Allergic contact dermatitis, unspecified cause Plan: Resolved (3) Hypercholesterolemia: Code(s): E78.00 - Pure hypercholesterolemia, unspecified Category: Medical Plan: Avoid fried foods, chicken skin, eggs, butter margarine, pastries and meat. Be it pork or beef they have a lot of cholesterol LDL goal of less than 130 and triglyceride of less than 150 (4) GERD (gastroesophageal reflux disease): Code(s): K21.9 - Gastro-esophageal reflux disease without esophagitis Category: Medical Qualifiers: Esophagitis presence: without esophagitis Qualified Code(s): K21.9 - Gastro-esophageal reflux disease without esophagitis Plan: Avoid the foods that causes that usually spicy foods, tomato products, juices, coffee, soda and foods that your sensitive to. After eating do not lie down, allow 3-4 hours before in lie down. And keep the head of bed above 30 degrees to avoid the acid from going up. (5) Asthma: Code(s): J45.909 - Unspecified asthma, uncomplicated Category: Medical Qualifiers: Asthma severity: mild Asthma persistence: intermittent Asthma complication type: uncomplicated Qualified Code(s): J45.20 - Mild intermittent asthma, uncomplicated Plan: Continue with the inhaler as needed (6) Insomnia: Code(s): G47.00 - Insomnia, unspecified Category: Medical Qualifiers: Insomnia type: primary Qualified Code(s): F51.01 - Primary insomnia Plan: Keep well hydrated keep active (7) Impaired glucose tolerance: Code(s): R73.02 - Impaired glucose tolerance (oral) Category: Medical Plan: Decrease the amount of carbohydrate intake, pasta, bread, rice and potatoes are all sugar and that is aside from all the sweet stuff, remember that fruits are good but they are Sweet also. (8) Generalized anxiety disorder: Code(s): F41.1 - Generalized anxiety disorder Category: Medical Plan: Stable, decline referral for counsellingl. (9) Dysuria: Code(s): R30.0 - Dysuria Category: Medical Plan: Urinalysis requested Orders: Orders Complete Blood Count Auto Diff 1 Month E78.00 - Pure hypercholesterolemia, unspecified Comprehensive Met. Panel 1 Month E78.00 - Pure hypercholesterolemia, unspecified Hemoglobin A1c 1 Month R73.02 - Impaired glucose tolerance (oral) AMB Urinalysis Automated Today R30.0 - Dysuria, Z13.9 - Encounter for screening, unspecified ECG 12 lead EKG Today F41.1 - Generalized anxiety disorder Free T4 (Free Thyroxine) 1 Month E78.00 - Pure hypercholesterolemia, unspecified Thyroid Stimulating Hormone 1 Month E78.00 - Pure hypercholesterolemia, unspecified Lipid Panel 1 Month E78.00 - Pure hypercholesterolemia, unspecified Vitamin B12 and Folate 1 Month E78.00 - Pure hypercholesterolemia, unspecified Vitamin D 25-OH Total 1 Month E78.00 - Pure hypercholesterolemia, unspecified Referrals Cologuard Test Z12.11 - Encounter for screening for malignant neoplasm of colon, Z12.12 - Encounter for screening for malignant neoplasm of rectum
== END 2024-04-12 12:24 | disposition home or self-care (01) ==
PROVIDERS: PCP Internal Medicine; Visit Provider Internal Medicine
DX: Z00.00 Encounter for general adult medical examination without abnormal findings (principal); L23.9 Allergic contact dermatitis, unspecified cause; E78.00 Pure hypercholesterolemia, unspecified; K21.9 Gastro-esophageal reflux disease without esophagitis; J45.20 Mild intermittent asthma, uncomplicated; F51.01 Primary insomnia; R73.02 Impaired glucose tolerance (oral); F41.1 Generalized anxiety disorder; R30.0 Dysuria; Z13.9 Encounter for screening, unspecified

== ENCOUNTER 2024-04-12 12:31 | Outpatient (REF) | payer OTHER, SELFPAY ==
--- NOTE | ~2024-04-12 | MM_ITS ---
EXAMINATION: MM SCREENING DIGITAL BREAST TOMOSYNTHESIS, BILATERAL CLINICAL INFORMATION: Screening. Asymptomatic. COMPARISON: Mammography: Comparison is made with available priors TECHNIQUE: Digital breast mammography with tomosynthesis is performed in both the craniocaudal and mediolateral oblique views along with computer-aided detection (CAD). FINDINGS: There are scattered areas of fibroglandular density (ACR BI-RADS breast composition Category b). There are no significant masses, abnormal calcifications, or other abnormalities. MM/MM tomosynthesis screening BI IMPRESSION: No mammographic evidence of malignancy. ASSESSMENT: BI-RADS BI-RADS 1 - Negative RECOMMENDATION: Routine annual mammography screening. 1 year F/U This examination should not preclude the clinical evaluation of a suspicious palpable abnormality. This patient's information was entered into a reminder system with a target due date for their next mammogram. Electronically signed by: Fallon Elder DO 04/25/2024 09:42 PM EDT
== END 2024-04-12 12:32 | disposition home or self-care (01) ==
LOC: HO.MAMMO 12:31
PROVIDERS: PCP Internal Medicine; Visit Provider Internal Medicine
DX: Z12.31 Encounter for screening mammogram for malignant neoplasm of breast (principal)
CPT/HCPCS: 77063; 77067; 81003; 99396

== ENCOUNTER → 2024-04-12 12:45 | Outpatient (BNV) | payer OTHER, SELFPAY | PROVIDERS: PCP Internal Medicine; Visit Provider Internal Medicine | DX: Z12.31 Encounter for screening mammogram for malignant neoplasm of breast (principal) | CPT/HCPCS: 77063; 77067 ==

== ENCOUNTER 2025-02-05 14:57 | Outpatient (AMB) | payer OTHER, SELFPAY ==
--- NOTE | 2025-02-05 14:59 | MHC.OFFVIS ---
Vital Signs 02/05/25 15:08 Height 5 ft 5 in Weight 235 lb BMI 39.1 BP 138/70 Blood Pressure Location Rt brachial Position Sitting Pulse 80 Pulse Source Pulse Oximeter Pulse Oximetry (%) 96 Oxygen Delivery Method Room Air Intake Visit Reasons: colo screening Intake Note: New/Est pt for rescreening of recall colo. AYO 2020. Pt has had colo ~ 20 years ago per emergency. CC: C.O. rectal bleeding intermittently. Pt states she had an episode last in July 2024 which caused her to seek care through [facility] ED. No additional sx or concerns at this time. Carboy Filler Required: No Accompanied by: Self / Same As Patient Allergies semaglutide (From Ozempic) Allergy (Intermediate, Verified 04/12/24 11:47) Dizziness latex Allergy (Unknown, Verified 04/12/24 11:47) Hives HPI HPI colo screening: Details: LAST VISIT 10/07/2020 55 year old female here today for pre colonoscopy screening. Patient was sent to us by her PCP. Patient reports that she had colonoscopy in 2004 for rectal bleed. Patient reports that she was on long-term therapy for migraine headaches with Imitrex and was told by provider at [facility] who took care of her then, that her rectal bleed was caused by Imitrex. Patient does not remember the actual diagnosis of what really happened because she was sedated. She believes that her bowel perforated. We will get records from [facility] and will review them. Patient denies any gastrointestinal symptoms at present. Patient reports that she used to had acid reflux, however since she changed her diet to eating more fruits and vegetables, no meat, protein shakes, she has not had any gastric reflux. Denies any personal or family history of gastrointestinal disease, colon polyps, or cancer. Denies history of difficulty with sedation or anesthesia in the past. Negative for history of sleep apnea. Denies any history of cardiac, renal, pulmonary, or hepatic disease. No history of infectious diseases like hepatitis A, B, C, HIV or tuberculosis. Patient is not on any anticoagulation therapy. Plan As mentioned above in HPI patient had her 1st colonoscopy in her 30s. It was diagnostic due to rectal bleed. We will try to get records, patient is unsure of what the real diagnosis was of her rectal bleed at that time. Patient denies having any GI symptoms, negative history for melena, blood in her stools, unintentional weight loss or ribbon like stools. Patient denies any infectious diseases in the past or present. Patient is trying to lose weight with taking supplements and changed her diet, however she is not having much luck. Patient has not been exercising much. She was encouraged to go for walks to increase her caloric burn. I will add TSH to her labs, I will order CBC and CMP. Patient denies any cardiac or respiratory issues. Has a history of asthma however has not been using her rescue inhalers, patient states she is feeling better on her current diet and believes that that helps. Discussed at length the pre-procedure, prep, diet & medications as well as what to expect prior, during and after the procedure. Stressed the importance of good bowel prep. Patient verbalizes understanding and agrees to plan of care. She was given the opportunity to ask questions and all questions answered. We will see her after the procedure Orders Orders: Comprehensive Met. Panel Today TSH reflex Free T4 Today Complete Blood Count no Diff Today TODAY'S VISIT: Patient is here today for consultation. Seen in the beginning of 2020 for colonoscopy screening, patient does not remember how come she never with for colonoscopy. Beginning of this year patient had experience bleeding from her hemorrhoids. Patient also had positive Cologuard last year in May. No changes since last visit. Denies any other GI concerning symptoms. Denies rectal bleed since that episode. Denies melena, hematochezia, unintentional weight loss or ribbon like stools. No issues with anesthesia in the past. No history of sleep apnea. Not on any anticoagulation medication. Patient denies any cardiac or respiratory symptoms. [facility] Medical History Vitamin D deficiency Neuropathy of right peroneal nerve Migraine Hypercholesterolemia Obesity (BMI 30-39.9) Osteoarthritis Right renal stone Fatty liver GERD (gastroesophageal reflux disease) Insomnia Anxiety Asthma Surgical History H/O colonoscopy H/O lithotripsy Right ankle injury S/P trigger finger release S/P trigger finger release Family History Father Myocardial infarct Mother Skin cancer Maternal Aunt Pancreatic cancer Diabetes mellitus Maternal Uncle Prostate cancer Paternal Aunt CAD (coronary artery disease) Myocardial infarct Paternal Uncle Myocardial infarct Brother Substance abuse Social History Household Members: Spouse, Family and Children Housing: House Alcohol intake: current Alcohol intake frequency: holidays/special occasions only Comment: last alcohol 06/2021 Patient Tobacco Use Status: Never used Tobacco e-Cigarette/Vaping Use: Never Used Second Hand Smoke Exposure: No service: No Current occupational status: employed 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 Cognitive needs: No Hearing needs: No Vision needs: No Review of Systems Const Denies weight gain and Denies weight loss ENT Reports no additional complaints, Denies dysphagia and Denies odynophagia Card Reports no additional complaints Resp Reports no additional complaints GI Denies abdominal pain, Denies belching, Denies melena, Denies bloating, Denies change in bowel habits, Denies dysphagia, Denies excessive flatus, Denies dyspepsia, Denies heartburn, Denies diarrhea, Denies loose stools, Denies nausea, Denies odynophagia and Denies vomiting Musc Reports no additional complaints Neuro Reports no additional complaints Psych Reports no additional complaints Endo Reports no additional complaints Physical Exam Vital Signs: Last Vital Signs Pulse 80 02/05/25 15:08 BP 138/70 02/05/25 15:08 Pulse Ox 96 02/05/25 15:08 Oxygen Delivery Method Room Air 02/05/25 15:08 BMI result Body Mass Index 39.1 Assessment & Plan Assessment & Plan (1) GERD (gastroesophageal reflux disease): Code(s): K21.9 - Gastro-esophageal reflux disease without esophagitis Category: Medical Qualifiers: Esophagitis presence: without esophagitis Qualified Code(s): K21.9 - Gastro-esophageal reflux disease without esophagitis (2) Colon cancer screening: Code(s): Z12.11 - Encounter for screening for malignant neoplasm of colon Category: Medical Plan Patient will be sent for colonoscopy. Message sent to Surgical schedules to bulk procedure as soon as we can. Patient will be put tentatively on the schedule for next Monday. Patient reports fatty liver. Will send her for abdominal ultrasound with elastography. What to expect before during and after procedure discussed with patient. Stressed importance of clear liquid diet and good bowel prep a day before procedure. I will see patient after the procedure, sooner on as needed basis. She is agreeable to this plan and verbalizes understanding of instructions. She was given the opportunity to ask questions and all questions answered. Thank you for allowing me to participate in her care Orders: Orders US abdomen comp w elastography Today R79.89 - Other specified abnormal findings of blood chemistry Medications: New polyethylene glycol 3350 (Miralax) As directed by gastroenterology department at [facility] 238 grams PO ONCE 238 grams 0RF Z12.11 - Encounter for screening for malignant neoplasm of colon bisacodyl (Dulcolax (bisacodyl)) take 4 tabs at noon the day before your colonoscopy 20 mg (4 x 5 mg) PO ONCE 4 tabs 0RF constipation 1 day Z12.11 - Encounter for screening for malignant neoplasm of colon Coding Level of Care Code New Pt Level 3 (09410) Diagnoses Gastroesophageal reflux disease without esophagitis K21.9 Esophagitis presence: without esophagitis Colon cancer screening Z12.11 Time Spent (min) 40 Comment 30 minutes spent with patient and additional 10 minutes spent reviewing her records
[2025-02-05 15:08] VITALS: BP 138/70; PULSE 80; O2SAT 96; BMI 39.1
--- OUTSIDE RECORDS SUMMARY | 2025-02-05 15:28 | XMS_ITS | Clinical Summary ---
Author Organization [employer] [facility] ity Address [address] [place] [address] Care Team Providers Care Work Ticket Distributor Name Role Phone Unavailable Primary Care Provider Unavailabl e Social History Tobacco Use Types Packs/Day Years Used Date Smoking Tobacco: Never Assessed Comments Unknown Sex and Gender Information Value Date Recorded Sex Assigned at Not on file Legal Sex Female 3:13 PM EST Gender Identity Not on file Sexual Orientation Not on file Plan of Treatment Health Maintenance Due Date Last Done Comments Breast Cancer Screening 1965 DTaP,Tdap,and Td Vaccines (1 - Tdap) 02/28/1983 Cervical Cancer Screening: P ap Smear 02/28/1985 Pneumococcal Vaccine: 50+ Ye ars (1 of 1 - PCV) 02/28/2014 Zoster Vaccines (1 of 2) 02/28/2014 COVID-19 Vaccine ( - 2023-2 5 season) 2024 Colorectal Cancer Screening: Colonoscopy 04/26/2024 HIV Screening 04/26/2024 Hepatitis C Screening 04/26/2024 Social Influencers of Health Screening 04/26/2024 Depression Screening 07/03/2024 Influenza Vaccine (#1) 2025 RSV Immunization Adult Patie nts (1 - 1-dose 75+ series) 02/28/2039 HIB Vaccines Aged Out No longer eligi ble based on patient's age to complete this topic HPV Vaccines Aged Out No longer eligi ble based on patient's age to complete this topic Hepatitis A Vaccines Aged Out No long er eligible based on patient's age to complete this topic Hepatitis B Vaccines Aged Out No long er eligible based on patient's age to complete this topic IPV Vaccines Aged Out No longer eligi ble based on patient's age to complete this topic MMR Vaccines Aged Out No longer eligi ble based on patient's age to complete this topic Meningococcal ACWY Vaccine Aged Out N o longer eligible based on patient's age to complete this topic Meningococcal B Vaccine Aged Out No l onger eligible based on patient's age to complete this topic RSV Immunization Patients Un paul 20 months Aged Out No longer eligible b ased on patient's age to complete this topic Varicella Vaccines Aged Out No longer eligible based on patient's age to complete this topic
--- OUTSIDE RECORDS SUMMARY | 2025-02-05 15:28 | XMS_ITS | Patient Health Record ---
Author Organization [facility] Address [address] [place] [address] Care Team Providers Care Hog Slaughterer Name Role Phone Po Jose JACOBSON Primary Care Provider Adonis Del oTro [phone] Reason For Referral No Information Plan Of Treatment No Information Insurance Providers Payer Name Payer Address Payer Phone Subscriber Number Group Number Insured Name Patient Relationship to Insured Coverage Start Date Coverage End Date [facility] [address] [address] [place], [place] [id number] DIMPLE DOWNS Self - patient is the insured
--- OUTSIDE RECORDS SUMMARY | 2025-02-05 15:28 | XMS_ITS | Patient Health Record ---
Author Organization [employer] [facility] Address [address] [place] [address] Care Team Providers Care Shredded Filler Cigar Maker Machine Name Role Phone ZHANG PARSONS M.D. Primary Care Provider Etta Damon Unavailable [phone] Allergies Allergen (clinical drug ingredient) Drug/Non Drug Allergy documented on EMR Reaction Allergy Type Onset Date Status Latex Latex Itching/Redness Allergy Acti ve Reason For Referral No Information Medications Medication SIG (Take, Route, Frequency, Duration) Notes Start Date End Date Status Vitamin B12 1000 MCG 1 tablet Orally Onc e a day Active Lotrisone 1-0.05 % 1 application to aff ected area x 14d, repeat if not resolved. Externally Twice a day; Duration: 14 days 07/23/2019 Active Albuterol Sulfate 2MG 1 ORAL four times daily; Duration: -3 Rivera-MJ 08/12/2013 Active Vitamin D3 1000 IU ORAL Once a Week; Duration: -3 Rivera-MJ 12/19/2013 Active Gabapentin Not-Takin g Hydrocortisone 2.5 % 1 application Exter rachel twice a day; Duration: 7 days 01/13/2021 Active Doxepin HCl 5 % 1 gram Externally 3- 4 times a day Not-Taking Social History Tobacco Use: Social History Observation Description Date Details (start date - stop date) Never Smoker NA - NA Tobacco Use/Smoking Question Answer Notes Are you a nonsmoker Alcohol Screen (Audit-C) Question Answer Notes Did you have a drink contain ing alcohol in the past year? Yes How often did you have a dri nk containing alcohol in the past year? Monthly or less (1 point) How many drinks did you have on a typical day when you were drinking in the past year? 1 or 2 drinks (0 point) Points 1 Interpretation Negative Sexual History Question Answer Notes Had sex in the past 12 months (vaginal, oral, or anal)? No Problems Problem Type SNOMED Code ICD Code Onset Dates Problem Status W/U Status Risk Notes Problem Migraine with aura (5089344) Migraine with aura, not intractable, without status migrainosus (G43.109) Active confirmed Problem Menopause (208260302) Menopausal and female climacteric states (N95.1) Active confirmed Problem SI - Stress incontinence (63152945) Stress incontinence (female) (male) (N39.3) Active confirmed Problem Obesity (197203569) Obesity, unspecified (278.00) Active confirmed Major Problem Asthma (disorder) (866643671) Asthma, unspecified, unspecified status (493.90) Active confirmed Major Problem Menopausal symptom (19581628) Symptomatic menopausal or female climacteric states (627.2) Active confirmed Diag Problem Gynecological examination normal (336070646746931) Routine gynecological examination (V72.31) Active confirmed Diag Plan Of Treatment Pending Test Test Name Order Date Urinalysis 11/13/2017 ONE SWAB 07/23/2019 THIN PREP,HPV,CON IF HPV+ (>29YR)(SCRN) 03/22/2018 THIN PREP,HPV,CON IF HPV+/CYT-,CT/GC(>2 9YR)(SCRN) 03/22/2018 MM Digital Mammo Screening 03/22/2018 ULTRASOUND: PELVIC W/TRANSVAGINAL 2017 Insurance Providers Payer Name Payer Address Payer Phone Subscriber Number Group Number Insured Name Patient Relationship to Insured Coverage Start Date Coverage End Date [facility] [address] [address] [place] [address] [id number] DIMPLE OLSEN Self - patient is the insured Medical (General) History Medical History History ICD Code Obesity, unspecified E66.9 Other asthma J45.998 Menopausal and female climacteric states N95.1 Stress incontinence (female) (male) N39. 3 osteoarthitis of knees Migraine with aura, not intractable, wit hout status migrainosus G43.109 Surgical History Surgery Date(Month/Year) Right Ankle Surgery Left Thumb Hospitalization History Reason Date(Month/Year) 2 Vaginal Deliveries See Surgical Hx
== END 2025-02-05 15:51 | disposition home or self-care (01) ==
LOC: HO.HGI 14:58
PROVIDERS: PCP Internal Medicine; Visit Provider Nurse Practitioner Family
DX: Z01.818 Encounter for other preprocedural examination (principal); Z12.11 Encounter for screening for malignant neoplasm of colon; K21.9 Gastro-esophageal reflux disease without esophagitis
CPT/HCPCS: 99203

== ENCOUNTER → 2025-02-05 14:57 | Outpatient (BNVA) | payer OTHER, SELFPAY | PROVIDERS: PCP Internal Medicine; Visit Provider Nurse Practitioner Family | DX: Z01.818 Encounter for other preprocedural examination (principal); K21.9 Gastro-esophageal reflux disease without esophagitis | CPT/HCPCS: 99202 ==

== ENCOUNTER 2025-02-14 11:07 | Day surgery (SDC) | payer OTHER, SELFPAY ==
[2025-02-12 12:07] VITALS: BMI 39.1
--- OUTSIDE RECORDS SUMMARY | 2025-02-14 11:13 | XMS_ITS | Clinical Summary ---
Author Organization [employer] [facility] ity Address [address] [place] [address] Care Team Providers Care Siebel Consultant Name Role Phone Unavailable Primary Care Provider [...]
--- OUTSIDE RECORDS SUMMARY | 2025-02-14 11:13 | XMS_ITS | Patient Health Record ---
Author Organization [employer] [facility] Address [address] [place] [address] Care Team Providers Care Agency Service Representative Name Role Phone ZHANG PARSONS M.D. Primary Care Provider Etta Damon Unavailable [phone] Allergies Allergen (clinical drug ingredient) Drug/Non Drug [...] Status Risk Notes Problem Migraine with aura (3199488) Migraine with aura, not intractable, without status migrainosus (G43.109) Active confirmed Problem Menopause (379654353) Menopausal and female climacteric states (N95.1) Active confirmed Problem SI - Stress incontinence (48223576) Stress incontinence (female) (male) (N39.3) Active confirmed Problem Obesity (140126095) Obesity, unspecified (278.00) Active confirmed Major Problem Asthma (disorder) (403864141) Asthma, unspecified, unspecified status (493.90) Active confirmed Major Problem Symptomatic menopausal or female climacteric states (627.2) Active confirmed Diag Problem Gynecological examination normal (029044228266640) Routine gynecological examination (V72.31) Active confirmed Diag [...] Insured Coverage Start Date Coverage End Date [facility] [address] [address] [place] [address] [id number] DIMPLE OLSEN Self - patient is the [...]
--- OUTSIDE RECORDS SUMMARY | 2025-02-14 11:13 | XMS_ITS | Patient Health Record ---
Author Organization [facility] Address [address] [place] [address] Care Team Providers Care Cover Stripper Name Role Phone Po Jose JACOBSON Primary Care Provider Adonis Del Toro [phone] Reason For Referral No Information Plan Of Treatment No Information Insurance Providers Payer Name Payer Address Payer Phone Subscriber Number Group Number Insured Name Patient Relationship to Insured Coverage Start Date Coverage End Date [facility] [address] [address] [place], [place] [id number] DIMPLE DOWNS Self - patient is the insured
[2025-02-14 11:55] VITALS: BP 98/65; PULSE 79; RESP 16; TEMP 36.6; O2SAT 97
[2025-02-14] MEDS: Lactated Ringers 1,000 ML 80 ML IVCONT (12:10)
--- NOTE | 2025-02-14 12:16 | P.HPSUR_ITS ---
Pre-Procedural Eval Section A - 24 Hr Update-Section A only Date of Service: 02/14/25 Section B - Complete if H&P > 30 days Chief Complaint: screening Details of Present Illness: D deficiency Neuropathy of right peroneal nerve Migraine Hypercholesterolemia Obesity (BMI 30-39.9) Osteoarthritis Right renal stone Fatty liver GERD (gastroesophageal reflux disease) Insomnia Anxiety Asthma Surgical History H/O colonoscopy H/O lithotripsy Right ankle injury S/P trigger finger release S/P trigger finger release Allergies: Allergies Allergy/AdvReac Type Severity Reaction Status Date / Time semaglutide (From Ozempic) Allergy Intermediate Dizziness Verified 04/12/24 11:47 latex Allergy Unknown Hives Verified 04/12/24 11:47 Review of Systems Review of Systems Comment: Ten point ROS negative Exam Exam Comment: Gen appear: No acute distress HEENT: no icterus Chest: No overt resp distress Abd: soft, nontender, nondistended Psych: Stable affect, answering questions appropriately Neuro: A/Ox3 noted to move all extremities spontaneously Ext: no peripheral edema Plan Diagnosis/Plan: Unchanged I have reviewed the history and physical and performed a pertinent physical examination on my patient. No changes have occurred unless specified. Time Spent With Patient Time: Total time managing care of this patient today ____ minutes.
--- NOTE | 2025-02-14 12:19 | HO.ANESPROP2 ---
[facility] Active Problems Active Problems: All Active Problems (Updated 05/15/24 @ 09:05 by Jose Laura MD) Positive colorectal cancer screening using Cologuard test (Acute) Dysuria (Acute) Allergic contact dermatitis (Acute) Nose pain (Acute) Tinea corporis (Acute) Mucoid cyst of joint (Acute) Skin abscess (Acute) Generalized anxiety disorder (Acute) Annual physical exam (Acute) Sciatic leg pain (Acute) Peripheral vascular disease (Acute) Muscle spasm (Acute) Contact dermatitis (Acute) Ankle pain, right (Acute) Foot pain, right (Acute) Left wrist pain (Acute) Eczema (Acute) Colon cancer screening (Acute) Vitamin D deficiency (Acute) Impaired glucose tolerance (Acute) Anemia (Acute) Migraine (Acute) Hypercholesterolemia (Acute) Obesity (BMI 30-39.9) (Acute) GERD (gastroesophageal reflux disease) (Acute) Insomnia (Acute) Anxiety (Acute) Asthma (Acute) Past Medical History Medical History Vitamin D deficiency Neuropathy of right peroneal nerve Migraine Hypercholesterolemia Obesity (BMI 30-39.9) Osteoarthritis Right renal stone Fatty liver GERD (gastroesophageal reflux disease) Insomnia Anxiety Asthma Functional capacity: independent ambulation Family History Family History Father Myocardial infarct Mother Skin cancer Maternal Aunt Pancreatic cancer Diabetes mellitus Maternal Uncle Prostate cancer Paternal Aunt CAD (coronary artery disease) Myocardial infarct Paternal Uncle Myocardial infarct Brother Substance abuse Family history of problems with anesthesia: No Surgical History Surgical History H/O colonoscopy H/O lithotripsy Right ankle injury S/P trigger finger release S/P trigger finger release History of Problems with Anesthesia: No Social History Social History Household Members: Spouse, Family and Children Housing: House Are you a primary behavioral health care manager to a significant other at home: No Do you presently have visiting nurse or other home services: No Alcohol intake: current Alcohol intake frequency: does not drink Comment: last alcohol 06/2021 Patient Tobacco Use Status: Never used Tobacco e-Cigarette/Vaping Use: Never Used Second Hand Smoke Exposure: No Use of substances other than those prescribed or required for medical reasons: No Have you been hit, kicked, punched, or otherwise hurt by someone within the past year? 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 Cognitive needs: No Hearing needs: No Vision needs: No Meds Allergies Allergy/AdvReac Type Severity Reaction Status Date / Time semaglutide (From Ozempic) Allergy Intermediate Dizziness Verified 04/12/24 11:47 latex Allergy Unknown Hives Verified 04/12/24 11:47 Active Medications: Current Medications Lactated Ringer's (Lr) 1,000 mls @ 80 mls/hr IVCONT .[id number] YUVAL Last Admin: 02/14/25 12:10 Dose: 80 mls/hr Home Medications ?Medication ?Instructions ?Recorded ?Confirmed ?Last Taken ?Type mecobalamin (vitamin B12) 1,000 1,000 mcg PO DAILY 07/17/20 02/14/25 02/07/25 History mcg chewable tablet B complex with vitamin cap PO .QD 07/27/21 04/12/24 02/07/25 History G-dnnqktvps-vppg capsule antiarthritic combination no.2 900 900 mg PO DAILY 04/12/24 02/14/25 02/11/25 History mg tablet (glucosamine-chondroitin) turmeric 400 mg capsule 400 mg PO DAILY 04/12/24 02/14/25 02/07/25 History Exam Exam Date and Time: 02/14/2025 Height,Weight and Vital Signs: Height 5 ft 5 in Weight 106.594 kg Last Vital Signs Temp 97.8 F 02/14/25 11:55 Pulse 79 02/14/25 11:55 Resp 16 02/14/25 11:55 BP 98/65 02/14/25 11:55 Pulse Ox 97 02/14/25 11:55 O2 Del Method Room Air 02/14/25 11:55 Airway Mallampati Class: II TM Dist: >3cm Neck ROM: Full Loose/Missing/Broken Teeth: No Heart: rrr Lungs: cta Assessment and Plan Assessment Anesthesia Assessment: Anesthesia Plan Discussed Final Anesthetic Review Family History of Problems with Anesthesia: No History of Problems with Anesthesia: No NPO: Yes ASA Class: II Final Preanesthetic Review: No Changes in Pt Med Stat, Meds/Allgs Chart Reviewed, Consent Obtained/Reviewed and Anes Risks/Benef Reviewed Patient Risk: Low Procedure Risk: Low Anesthetic Plan Anesthetic Plan: MAC:
--- NOTE | 2025-02-14 12:59 | P.OPN-COLO_ITS ---
Colonoscopy Operative Note Operative Note Date of Service: 02/14/25 Narrative: Procedure: Colonoscopy Indication: Screening Endoscopist: Anjali Pérez MD Anesthesia Provider: Dr Stevens Anesthesia type: MAC Instrument: Olympus [id number] and [id number] Consent: Indication, risks vs benefits, and alternatives were discussed with the patient who gave written informed consent to proceed. EKG, pulse, pulse oximetry and blood pressure were monitored throughout the procedure. Please see anesthesia flowsheet. Procedure: The abdominal binder was affixed to the lower abdomen. The patient was then brought to the procedure room and placed in the left lateral decubitus position. IV medications were administered by the anesthesia provider in attendance. A digital rectal exam was performed which was abnormal due to finding of hemorrhoids. A distal attachment cap was affixed to the tip of the colonoscope which was then inserted through the anus and advanced through the colon to the cecum at 75 cm. Appendiceal orifice and ileocecal valve were identified. Mucosa was carefully examined under high definition white light as the instrument was slowly withdrawn in a retrograde panoramic fashion. Retroflexion was performed in rectum. The procedure was somewhat difficult with the PCF, but cecum was easily reached when we switched to the adult scope. There were no immediate obvious complications. The quality of the prep was BBPS: 3+3+2 = adequate Withdrawal time 8 minutes. Limitations: No limitations. Findings: Mucosa: Normal to cecum. Protruding lesions: * Large internal hemorrhoids without stigmata of recent bleeding. Excavated lesions: * Moderate to severe diverticulosis of left sided colon. Impression: 1. Normal colon mucosa 2. Diverticulosis 3. Internal hemorrhoids Recommendations: - Repeat colonoscopy in 10 years for asymptomatic colorectal cancer screening.
[2025-02-14 13:04] VITALS: BP 93/59; PULSE 67; RESP 16; TEMP 36.1; O2SAT 95
[2025-02-14 13:22] VITALS: BP 112/80; PULSE 71; RESP 18; TEMP 36.2; O2SAT 99
== END 2025-02-14 14:13 | disposition home or self-care (01) ==
PROVIDERS: PCP Internal Medicine; Visit Provider Internal Medicine
PROC: 0DJD8ZZ Inspection of Lower Intestinal Tract, Via Natural or Artificial Opening Endoscopic (ICD-10-PCS; CPT 45378; principal; 2025-02-14 12:40)
DX: Z12.11 Encounter for screening for malignant neoplasm of colon (principal); K64.8 Other hemorrhoids; K57.30 Diverticulosis of large intestine without perforation or abscess without bleeding; E78.00 Pure hypercholesterolemia, unspecified; J45.909 Unspecified asthma, uncomplicated; E55.9 Vitamin D deficiency, unspecified; F41.9 Anxiety disorder, unspecified; G47.00 Insomnia, unspecified; Z79.899 Other long term (current) drug therapy
CPT/HCPCS: 45378; J2003; J2704

== ENCOUNTER → 2025-02-14 11:07 | Outpatient (BNV) | payer OTHER, SELFPAY | PROVIDERS: PCP Internal Medicine; Visit Provider Internal Medicine | DX: Z12.11 Encounter for screening for malignant neoplasm of colon (principal); K57.90 Diverticulosis of intestine, part unspecified, without perforation or abscess without bleeding; K64.8 Other hemorrhoids | CPT/HCPCS: 45378 ==